=== PATIENT | female | born 1950 | race Caucasian/White ===

== ENCOUNTER → 2016-12-23 | Outpatient (CLI) | payer MEDICARE, BC ==
[~2016-12-23] MED LIST: ACET1CAP18 PO; BIOTCAP PO; CALC-187 PO; CHOL5000 PO; CYCL1TAB29 PO; ESTR2TAB4 PO; FIBE625T PO; FISH1000 PO; GABA600T PO; GEMF600T PO; IMIT50TA PO; LOSA50TA PO; MULT-135 PO; ONDA1TAB16 PO; PROP20TA3 PO; SYSTSOL EACH EYE; TRAM50TA PO
[2016-12-23 13:18] LABS: INDIRECT BILIRUBIN 0.2 MG/DL (0.0-0.8); TOTAL BILIRUBIN ADULT 0.3 MG/DL (0.2-1.0)
== END ==
LOC: CLAB 12:15
PROVIDERS: ATTEND Internal Medicine Gastroenterology
DX: R10.33 Periumbilical pain (principal)
CPT/HCPCS: 36415; 80076; 82565; 84520

== ENCOUNTER → 2017-01-15 | Day surgery (SDC) | payer MEDICARE, OTHER ==
[~2017-01-15] MED LIST changes: +*ONDANSETRON 4 MG VIAL PERIprocedural Use ONLY ONE; +LIDOCAINE HCL 1% 30 ML VIAL NB ONE; +MEPERIDINE HCL 25 MG/ML VIAL IV ONE; +PROPOFOL 200 MG/20 ML AMP IV ONE; +SODIUM CHLORIDE 0.9% 10 ML VIAL ONE
--- NOTE | 2017-01-20 10:18 | M6 ---
cc: VICENTA COLLAZO M.D. DATE 01/15/2017 DATE OF 1950 PROCEDURE Fluoroscopically guided L5-S1 translaminar epidural steroid injection. PROCEDURE NOTE History and physical was completed and signed. Consent was signed. Procedure site was marked. Medications were listed and reconciled. Pain score was recorded. Allergies were noted. Time out was taken. Fluoroscopy time was recorded where applicable. Sedation was administered or directed by Dr. Collazo. The patient was given oxygen. The patient was monitored by a registered nurse. Total procedure time was greater than 15 minutes. IV was started, blood pressure cuff, pulse oximeter and EKG were applied. The patient was placed in the prone position on a Anthony table, sedated with small amounts of propofol titrated to effect. Vital signs were monitored and remained stable throughout the procedure. The lumbar area was prepped with alcohol and 10% Betadine solution and draped with sterile drapes. Fluoroscopy was used to visualize the L5-S1 interlaminar space. The skin was infiltrated with 1% Xylocaine using a 27 gauge needle. Then a 3-1/2-inch 18-gauge Simpson needle was advanced using fluoroscopic guidance and the zglv-no-edindovvzb technique into the epidural space at L5-S1 slightly to the left of the midline. There was negative aspiration for blood or any other type of fluid and the patient was given 10 mL of half percent Xylocaine 80 mg of Depo-Medrol. Following this, she was taken to the recovery room with stable vital signs neurologically intact. W. MD LORAINE Ruiz/TORREY /10:27 AM /9:15 AM
== END | disposition home or self-care (01) ==
LOC: PHSDC 09:00
PROVIDERS: ATTEND Pain Medicine Interventional Pain Medicine
DX: M54.5 Low back pain (principal)
CPT/HCPCS: 62323; 99152; J2175; J2405

== ENCOUNTER → 2017-03-26 | Outpatient (CLI) | payer MEDICARE, OTHER ==
[~2017-03-26] MED LIST changes: -*ONDANSETRON 4 MG VIAL PERIprocedural Use ONLY ONE; -LIDOCAINE HCL 1% 30 ML VIAL NB ONE; -MEPERIDINE HCL 25 MG/ML VIAL IV ONE; -PROPOFOL 200 MG/20 ML AMP IV ONE; -SODIUM CHLORIDE 0.9% 10 ML VIAL ONE
[2017-03-26 08:25] LABS: HEMATOCRIT 35.4 % (35.0-46.0); MEAN CELL VOLUME 96.1 FL (80.0-100.0); MEAN CORPUSCULAR HEMOGLOBIN 32.2 PG (27.0-34.0); MEAN CORPUSCULAR HGB CONC 33.5 % (32.0-36.0); PLATELET COUNT 245 TH/MM3 (150-450); RED BLOOD COUNT 3.69 MIL/MM3 (4.00-5.30); RED CELL DISTRIBUTION WIDTH 12.7 % (11.6-17.2); REVIEW FLAG FINAL; WHITE BLOOD COUNT 8.3 TH/MM3 (4.0-11.0)
[2017-03-26 09:09] LABS: ALKALINE PHOSPHATASE 76 U/L (45-117); ALT (GPT) 17 U/L (10-53); ANION GAP 10 MEQ/L (5-15); AST (GOT) 12 U/L (15-37); BICARBONATE 26.5 MEQ/L (21.0-32.0); BLOOD UREA NITROGEN 19 MG/DL (7-18); CHLORIDE 105 MEQ/L (98-107); FREE T4 0.87 NG/DL (0.76-1.46); GLOMERULAR FILTRATION RATE 50 ML/MIN (>89); GLUCOSE,FASTING 100 MG/DL (74-99); HDL CHOLESTEROL 58.4 MG/DL (40.0-60.0); LDL CHOLESTEROL 130 MG/DL (0-99); SODIUM (NA) 141 MEQ/L (136-145); TOTAL BILIRUBIN ADULT 0.3 MG/DL (0.2-1.0)
== END ==
LOC: CLAB 07:47
PROVIDERS: ATTEND Family Medicine
DX: I10 Essential (primary) hypertension (principal); F41.9 Anxiety disorder, unspecified; F32.9 Major depressive disorder, single episode, unspecified; E78.2 Mixed hyperlipidemia; G43.909 Migraine, unspecified, not intractable, without status migrainosus
CPT/HCPCS: 36415; 80053; 80061; 82306; 82607; 84439; 84443; 85027

== ENCOUNTER 2017-09-07 09:50 | Emergency (ER) | payer MEDICARE, MEDICAID ==
[~2017-09-07] VITALS: Ht 172.7 cm; Wt 89.0 kg
[~2017-09-07 09:50] MED LIST changes: +CYCL10TA PO; -CYCL1TAB29 PO; -ONDA1TAB16 PO; +ONDA4TAB15 PO
[2017-09-07 10:00] VITALS: BP 155/67; PULSE 76; RESP 16; TEMP 97.9; O2SAT 97
[2017-09-07] MEDS ORDERED: AMIT25TA9 PO (10:58)
[2017-09-07] MEDS ORDERED: PANT20TA2 PO (10:58)
--- NOTE | 2017-09-07 11:13 | PD ---
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 States she has nasal congestion throat pain, intermittent fever, nausea, cough for 2 weeks. Said her granddaughter was sick with the cold. Said she feels a little sob but is mainly congestion. Denies any chest pain, vomiting, abdominal pain, new weakness or numbness. 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 Also gets botox injections for neck muscle spasms. PFSH Past Medical History Arthritis: Yes (OSTEOARTHRITIS) Asthma: No Autoimmune Disease: No Blood Disorders: No Anxiety: No Depression: No Heart Rhythm Problems: No Cancer: No Cardiovascular Problems: Yes (Hyperlipidemia) High Cholesterol: Yes Chemotherapy: No Chest Pain: No Congestive Heart Failure: No COPD: No Cerebrovascular Accident: No Diabetes: No Diminished Hearing: No Endocrine: No Gastrointestinal Disorders: Yes (Gastroenteritis) GERD: No Genitourinary: No Headaches: Yes Hepatitis: No Hiatal Hernia: No Hypertension: Yes Immune Disorder: No Kidney Stones: No Musculoskeletal: Yes Neurologic: Yes (GULLIAN BERRET'S) Psychiatric: No Reproductive: No Respiratory: No Integumentary: Yes (rash bilat legs) Migraines: Yes Radiation Therapy: No Renal Failure: No Seizures: No Sickle Cell Disease: No Sleep Apnea: No Thyroid Disease: Yes (Hypothyroidism) Ulcer: No PNEUMOCCOCAL Vaccine (Year): 1 Menopausal: Yes : 4 Para: 3 Miscarriage: 1 Ovarian Cysts: Yes Past Surgical History Abdominal Surgery: Yes (CHOLECYSTECTOMY 2012) AICD: No Arteriovenous Shunt: No Cardiac Surgery: No Cholecystectomy: Yes Ear Surgery: No Endocrine Surgery: No Eye Surgery: No Genitourinary Surgery: No Gynecologic Surgery: Yes (OOPHORECTOMY 1969; JIGNESH and BSO) Hysterectomy: Yes Insulin Pump: No Joint Replacement: No Oral Surgery: No Pacemaker: No Thoracic Surgery: No Other Surgery: Yes (cyst removed) Social History Alcohol Use: No Tobacco Use: No Substance Use: No Allergies-Medications (Allergen,Severity, Reaction): Coded Allergies: amlodipine (Unverified Allergy, Severe, Rash, 09/07/17) nitrofurantoin (Unverified Allergy, Severe, HIVES, 09/07/17) pneumococcal vaccine (Unverified Allergy, Intermediate, left arm edema, ) meloxicam (Unverified Allergy, Mild, RASH, 09/07/17) Influenza Virus Vaccines (Unverified Allergy, Unknown, NOT SURE IF IT CONTRIBUTES TO HER GUILLENE BARRE, 09/07/17) Sulfa (Sulfonamide Antibiotics) (Unverified Allergy, Unknown, UNKNOWN REACTION, 09/07/17) Reported Meds & Prescriptions Reported Meds & Active Scripts Active Reported Pantoprazole (Pantoprazole Sodium) 20 Mg Tab 20 Mg PO DAILY Amitriptyline (Amitriptyline HCl) 25 Mg Tab 25 Mg PO HS Imitrex (Sumatriptan Succinate) 50 Mg Tab 50 Mg PO BID NEEDED PRN If a satisfactory response has not been obtained at 2 hours, a second dose may be administered Tramadol (Tramadol HCl) 50 Mg Tab 50 Mg PO Q8H PRN Losartan (Losartan Potassium) 50 Mg Tab 50 Mg PO DAILY Gemfibrozil 600 Mg Tab 600 Mg PO BIDAC Take 30 minutes prior to breakfast and dinner. Gabapentin 600 Mg Tab 900 Mg PO TID Estrace (Estradiol) 2 Mg Tab 2 Mg PO DAILY Review of Systems Except as stated in HPI: all other systems reviewed are Neg Physical Exam Narrative GENERAL: 67yo F in mild distress. SKIN: Focused skin assessment warm/dry. HEAD: Atraumatic. Normocephalic. EYES: Pupils equal and round. No scleral icterus. No injection or drainage. ENT: Throat: Uvula midline, no erythema or edema. NECK: Trachea midline. No JVD. CARDIOVASCULAR: Regular rate and rhythm. No murmur appreciated. RESPIRATORY: No accessory muscle use. Clear to auscultation. Breath sounds equal bilaterally. GASTROINTESTINAL: Abdomen soft, non-tender, nondistended. MUSCULOSKELETAL: No obvious deformities. No clubbing. No cyanosis. No edema. NEUROLOGICAL: Awake and alert. LLE weakness more than RLQ that is not new. Sensation intact. PSYCHIATRIC: Appropriate mood and affect; insight and judgment normal. Data Data Last Documented VS Vital Signs Date Time Temp Pulse Resp B/P (MAP) Pulse Ox O2 Delivery O2 Flow Rate FiO2 09/07/17 10:00 97.9 76 16 155/67 (96) 97 Orders Orders Electrocardiogram (09/07/17 ) Complete Blood Count With Diff (09/07/17 11:11) Basic Metabolic Panel (Bmp) (09/07/17 11:11) Magnesium (Mg) (09/07/17 11:11) Chest, Single Ap (09/07/17 ) Ondansetron Inj (Zofran Inj) (09/07/17 11:15) Sodium Chlorid 0.9% 500 Ml Inj (Ns 500 M (09/07/17 11:15) Influenzae A/B Antigen (09/07/17 11:11) Guaifen-Cod 200-20 Mg/10ml Liq (Robituss (09/07/17 11:15) Group A Rapid Strep Screen (09/07/17 11:19) Acetaminophen (Tylenol) (09/07/17 11:30) Strep Culture (Group A) (09/07/17 11:29) Labs Laboratory Tests Test 09/07/17 11:28 White Blood Count 12.0 TH/MM3 Red Blood Count 4.03 MIL/MM3 Hemoglobin 12.5 GM/DL Hematocrit 36.8 % Mean Corpuscular Volume 91.2 FL Mean Corpuscular Hemoglobin 31.0 PG Mean Corpuscular Hemoglobin Concent 34.0 % Red Cell Distribution Width 11.9 % Platelet Count 316 TH/MM3 Mean Platelet Volume 8.5 FL Neutrophils (%) (Auto) 68.6 % Lymphocytes (%) (Auto) 20.7 % Monocytes (%) (Auto) 6.5 % Eosinophils (%) (Auto) 3.4 % Basophils (%) (Auto) 0.8 % Neutrophils # (Auto) 8.2 TH/MM3 Lymphocytes # (Auto) 2.5 TH/MM3 Monocytes # (Auto) 0.8 TH/MM3 Eosinophils # (Auto) 0.4 TH/MM3 Basophils # (Auto) 0.1 TH/MM3 CBC Comment DIFF FINAL Differential Comment Blood Urea Nitrogen 7 MG/DL Creatinine 0.90 MG/DL Random Glucose 91 MG/DL Calcium Level 8.7 MG/DL Magnesium Level 2.1 MG/DL Sodium Level 140 MEQ/L Potassium Level 3.7 MEQ/L Chloride Level 106 MEQ/L Carbon Dioxide Level 21.7 MEQ/L Anion Gap 10 MEQ/L Estimat Glomerular Filtration Rate 63 ML/MIN MDM Medical Decision Making Medical Screen Exam Complete: Yes Emergency Medical Condition: Yes Interpretation(s) EKG: NSR 67bpm. Normal axis. No ST segment elevation or depression. Differential Diagnosis URI vs. influenza vs. post nasal drip vs. pneumonia vs. sinusitis Narrative Course 67yo F with URI symptoms. Labs reviewed, WBC 12. Magnesium normal. BMP unremarkable. CXR showed mild elevation or hemidiaphragms. No focal infiltrates seen. Group A strep negative. Influenza negative. Pt given robitussin with codeine, zofra and acetaminophen. Pt reevaluated at bedside and feels better. Cough has improved. No chest pain. Return precautions given. Diagnosis Primary Impression: URI (upper respiratory infection) Qualified Codes: J06.9 - Acute upper respiratory infection, unspecified Patient Instructions: General Instructions Departure Forms: Tests/Procedures Additional Instructions: Please follow up with your primary care physician in 3-7 days. Return to the ED if symptoms worsen. Med/Other Pt SpecificInfo: Prescription(s) given Scripts Fluticasone Nasal [place] (Flonase Nasal [place]) 50 Mcg/Act [place] 50 MCG EACH NARE BID for Allergies, #1 BOTTLE 0 Refills Prov: Adilene Blue DO 09/07/17 Dextromethorphan-Guaifenesin (Robitussin Cough Chest Congestion) 10-200 Mg Cap 1 CAP PO Q6H Y for CHEST CONGESTION AND/OR COUGH for 5 Days, #20 CAP 0 Refills Prov: Adilene Blue DO 09/07/17 Disposition: 01 DISCHARGE HOME Condition: Stable Adilene Blue DO Sep 07, 2017 11:13
[2017-09-07] MEDS ORDERED: SODIUM CHLORID 0.9% 500 ML INJ 500 ML IV ONE (11:15)
[2017-09-07] MEDS ORDERED: ONDANSETRON HCL 4 MG/2 ML VIAL IV PUSH ONE (11:15)
[2017-09-07] MEDS ORDERED: guaiFENesin/CODEINE SYRUP 200 MG/20 MG/10 ML CUP PO ONE (11:15)
[2017-09-07] MEDS ORDERED: ACETAMINOPHEN 325 MG TAB PO ONE (11:30)
--- NOTE | 2017-09-07 11:39 | RADRPT ---
EXAM DATE/TIME: 09/07/2017 11:20 [facility] COMPARISON: CHEST SINGLE AP, December 27, 2014, 17:10. INDICATIONS : Cough and fever for 3 weeks. MEDICAL HISTORY : None. SURGICAL HISTORY : None. ENCOUNTER: Initial ACUITY: 3 weeks PAIN SCORE: 2/10 LOCATION: Bilateral chest FINDINGS: The heart is enlarged. Central pulmonary markings well delineated. Mild elevation right hemidiaphra gm. No focal infiltrates seen. No blunting of the costophrenic angles. CONCLUSION: Mild elevation of the hemidiaphragms a new finding from 2014. No focal infiltrates seen. Yuri Arredondo MD on September 07, 2017 at 11:37 Board Certified Radiologist. This report was verified electronically.
[2017-09-07 11:49] LABS: AUTOMATED NEUTROPHIL # 8.2 TH/MM3 (1.8-7.7); BASOPHIL # 0.1 TH/MM3 (0-0.2); BASOPHIL % 0.8 % (0.0-2.0); EOSINOPHIL # 0.4 TH/MM3 (0-0.4); EOSINOPHIL % 3.4 % (0.0-4.0); HEMATOCRIT 36.8 % (35.0-46.0); HEMO FLAGS DIFF FINAL; LYMPH % 20.7 % (9.0-44.0); LYMPHOCYTE # 2.5 TH/MM3 (1.0-4.8); MEAN CELL VOLUME 91.2 FL (80.0-100.0); MONO % 6.5 % (0.0-8.0); NEUT % 68.6 % (16.0-70.0); PLATELET COUNT 316 TH/MM3 (150-450); RED BLOOD COUNT 4.03 MIL/MM3 (4.00-5.30); RED CELL DISTRIBUTION WIDTH 11.9 % (11.6-17.2)
[2017-09-07 12:06] LABS: POTASSIUM 3.7 MEQ/L (3.5-5.1)
[2017-09-07 12:52] LABS: BICARBONATE 21.7 MEQ/L (21.0-32.0); MAGNESIUM 2.1 MG/DL (1.5-2.5)
[2017-09-07] MEDS ORDERED: FLUT1SPR5 EACH NARE (13:13)
[2017-09-07] MEDS ORDERED: DEXT1CAP5 PO (13:13)
[2017-09-07 13:25] VITALS: RESP 18
--- NOTE | 2017-09-07 18:01 | EKG ---
Date Performed: 09/07/2017 Time Performed: 11:46:33 PTAGE: 67 years EKG: Sinus rhythm NORMAL ECG Compared to prior tracing no significant change PREVIOUS TRACING : 12/27/2014 17.41 DOCTOR: Yessenia Vasquez Interpretating Date/Time 09/07/2017 18:00:27
== END 2017-09-07 13:32 | disposition home or self-care (01) ==
LOC: PHED 09:50 → PHEFT 13:32
DX: J06.9 Acute upper respiratory infection, unspecified (principal); G61.0 Guillain-Barre syndrome; I10 Essential (primary) hypertension; Z79.899 Other long term (current) drug therapy
CPT/HCPCS: 71010; 80048; 83735; 85025; 87081; 87804; 87880; 93005; 96361; 96374; 99285; J2405; J7040

== ENCOUNTER → 2017-11-23 | Day surgery (SDC) | payer MEDICARE, MEDICAID ==
[~2017-11-23] MED LIST changes: -ACET1CAP18 PO; +AMIT25TA9 PO; -CALC-187 PO; +CALC1TAB87 PO; -CHOL5000 PO; +CHOL500022 PO; -CYCL10TA PO; +DEXT1CAP5 PO; -FISH1000 PO; +FLUT1SPR5 EACH NARE; +LIDOCAINE HCL 1% PF 30 ML VIAL INFIL ONE; +MEPERIDINE HCL 25 MG/ML VIAL IV ONE; +MEPERIDINE HCL 50 MG/ML VIAL ONE; -MULT-135 PO; +MULTTAB12 PO; +OMEG100010 PO; -ONDA4TAB15 PO; +PANT20TA2 PO; -PROP20TA3 PO; +PROPOFOL 200 MG/20 ML AMP IV ONE; +SODIUM CHLORIDE 0.9% 10 ML VIAL ONE; +TRIA0.5O TOPICAL; +TRIAMCINOLONE ACETONIDE 40 MG/ML VIAL NERV BLOCK ONE; +VITA250T5 PO; +VITA50TA30 PO; +ZOFR4TAB PO
--- NOTE | 2017-11-24 06:31 | M6 ---
cc: VICENTA COLLAZO M.D. DATE 11/23/2017 DATE OF 1950 PROCEDURE Fluoroscopically guided T1-T2 interlaminar epidural steroid injection. History and physical was completed and signed. Consent was signed. Procedure site was marked. Medications were listed and reconciled. Pain score was recorded. Allergies were noted. Time out was taken. Fluoroscopy time was recorded where applicable. Sedation was administered or directed by Dr. Collazo. The patient was given oxygen. The patient was monitored by a registered nurse. Total procedure time was greater than 15 minutes. PROCEDURE NOTE IV was started. Blood pressure cuff, pulse oximeter and EKG were applied. The patient was placed in the prone position on a Anthony table, sedated with small amounts of Demerol and propofol titrated to effect. Vital signs were monitored and remained stable throughout the procedure. The cervical area was prepped with alcohol and 10% Betadine solution and draped with sterile drapes. Fluoroscopy was used to visualize the T1-T2 interlaminar space. The skin was infiltrated with 1% Xylocaine using a 27-gauge needle. Then a 3-1/2-inch, 18-gauge Simpson needle was advanced using the qbve-av-jytdgzdjoo technique and fluoroscopic guidance through the ligamentum flavum into the epidural space. There was negative aspiration for blood or any other type of fluid and the patient was given 6 mL of normal saline and 60 mg of Kenalog. Following the procedure the patient was taken to the recovery room with stable vital signs, neurologically intact. She will be evaluated immediately and with followup to determine if she has a subjective decrease in her usual pain and a corresponding objective increase in her functional capabilities. This patient was last seen in March of 2017 at which time we used Botox on both her cervical and shoulder musculature which helped her headaches significantly. Then in July her headaches began to return. Now she has severe headaches and pain radiating down her left arm. The above-mentioned cervical epidural steroid injection is intended to help her left cervical radiculopathy and we need to repeat the Botox injection which was effective back in March of 2017. I have reminded the patient again that the duration of Botox is 3-4 months in most patients so if we repeat the Botox and her headaches significantly improve, she needs to remember when the headaches began to return, usually at a 3 to 4-month period, to come to repeat her Botox. W. MD LORAINE Ruiz/GABBY /8:22 AM /6:22 AM
== END | disposition home or self-care (01) ==
LOC: PHSDC 07:01
PROVIDERS: ATTEND Pain Medicine Interventional Pain Medicine
DX: M54.12 Radiculopathy, cervical region (principal)
CPT/HCPCS: 62321; 99152; J2175; J3301

== ENCOUNTER → 2017-12-07 | Day surgery (SDC) | payer MEDICARE, MEDICAID ==
[~2017-12-07] MED LIST changes: -DEXT1CAP5 PO; -FLUT1SPR5 EACH NARE; +FLUT50SP EACH NARE; +HYDR-2376 PO; +LIDOCAINE HCL 1% 30 ML VIAL INFIL ONE; -LIDOCAINE HCL 1% PF 30 ML VIAL INFIL ONE; -MEPERIDINE HCL 50 MG/ML VIAL ONE; +PRED1 PO; -TRIAMCINOLONE ACETONIDE 40 MG/ML VIAL NERV BLOCK ONE; +methylPREDNISolone ACETATE 80 MG/ML VIAL ONE
--- NOTE | 2017-12-09 11:08 | M6 ---
cc: VICENTA COLLAZO M.D. DATE 12/07/2017 DATE OF 1950 PROCEDURE Fluoroscopically guided L5-S1 interlaminar epidural steroid injection. History and physical was completed and signed. Consent was signed. Procedure site was marked. Medications were listed and reconciled. Pain score was recorded. Allergies were noted. Time out was taken. Fluoroscopy time was recorded where applicable. Sedation was administered or directed by Dr. Collazo. The patient was given oxygen. The patient was monitored by a registered nurse. Total procedure time was greater than 15 minutes. PROCEDURE NOTE IV was started. Blood pressure cuff, pulse oximeter and EKG were applied. The patient was placed in the prone position on a Anthony table, sedated with small amounts of propofol titrated to effect. Vital signs were monitored and remained stable throughout the procedure. The lumbar area was prepped with alcohol and 10% Betadine solution and draped with sterile drapes. Fluoroscopy was used to visualize the L5-S1 interlaminar space. The skin was infiltrated with 1% Xylocaine using a 27-gauge needle. Then a 3-1/2-inch, 18-gauge Simpson needle was advanced using fluoroscopic guidance and the bpey-ed-ylpqykncrd technique into the epidural space at L5-S1 slightly to the right of the midline. There was negative aspiration for blood or any other type of fluid and the patient was given 10 mL of 0.5% Xylocaine, 80 mg of Depo-Medrol. Following the procedure the patient was taken to the recovery room with stable vital signs, neurologically intact. WMD LORAINE Hicks/GABBY /8:39 AM /11:02 AM
== END | disposition home or self-care (01) ==
LOC: PHSDC 07:09
PROVIDERS: ATTEND Pain Medicine Interventional Pain Medicine
DX: R51 Headache (principal)
CPT/HCPCS: 62323; 99152; J1040; J2175

== ENCOUNTER → 2018-02-02 | Day surgery (SDC) | payer MEDICARE, MEDICAID ==
[~2018-02-02] MED LIST changes: +TRIAMCINOLONE ACETONIDE 40 MG/ML VIAL NERV BLOCK ONE; -methylPREDNISolone ACETATE 80 MG/ML VIAL ONE
--- NOTE | 2018-02-02 10:50 | M6 ---
cc: Kasey Collazo MD DATE: 02/02/2018 DATE OF : 1950 PROCEDURE: Fluoroscopically-guided T1-T2 interlaminar epidural steroid injection. History and physical was completed and signed. Consent was signed. Procedure site was marked. Medications were listed and reconciled. Pain score was recorded. Allergies were noted. Time out was taken. Fluoroscopy time was recorded where applicable. Sedation was administered or directed by Dr. Collazo. The patient was given oxygen. The patient was monitored by a registered nurse. Total procedure time was greater than 15 minutes. PROCEDURE NOTE: IV was started. Blood pressure cuff, pulse oximeter and EKG were applied. The patient was placed in the prone position on a Anthony table, sedated with small amounts of propofol titrated to effect. Vital signs were monitored and remained stable throughout the procedure. The cervical area was prepped with alcohol and 10% Betadine solution and draped with sterile drapes. Fluoroscopy was used to visualize the T1-T2 interlaminar space. The skin was infiltrated with 1% Xylocaine, using a 27-gauge needle. Then, a 3-1/2 inch, 18-gauge Simpson needle was advanced using fluoroscopic guidance and the loss of resistance technique into the epidural space at T1-T2, slightly to the right of the midline. There was negative aspiration for blood or any other type of fluid and the patient was given 6 mL of normal saline and 60 mg of Kenalog. Following the procedure, the patient was taken to the recovery room with stable vital signs, neurologically intact. She will be evaluated immediately and with followup to determine if she has a subjective decrease in her usual pain and a corresponding objective increase in her functional capabilities. MD LORAINE Arriaga/ANNA , 10:25 AM , 10:49 AM
== END | disposition home or self-care (01) ==
LOC: PHSDC 09:00
PROVIDERS: ATTEND Pain Medicine Interventional Pain Medicine
DX: M25.511 Pain in right shoulder (principal)
CPT/HCPCS: 62321; 99152; J2175; J3301

== ENCOUNTER → 2018-02-14 | Day surgery (SDC) | payer MEDICARE, MEDICAID ==
[~2018-02-14] MED LIST changes: -PRED1 PO; -TRIAMCINOLONE ACETONIDE 40 MG/ML VIAL NERV BLOCK ONE; -VITA50TA30 PO; +methylPREDNISolone ACETATE 80 MG/ML VIAL ONE
--- NOTE | 2018-02-14 09:15 | M6 ---
cc: Kasey Collazo MD DATE: 02/14/2018 PROCEDURE: Fluoroscopically guided L5-S1 intralaminar epidural steroid injection. PROCEDURE NOTE: History and physical was completed and signed. Consent was signed. Procedure site was marked. Medications were listed and reconciled. Pain score was recorded. Allergies were noted. Time out was taken. Fluoroscopy time was recorded where applicable. Sedation was administered or directed by Dr. Colalzo. The patient was given oxygen. The patient was monitored by a registered nurse. Total procedure time was greater than 15 minutes. IV was started. Blood pressure cuff, pulse oximeter and EKG were applied. The patient was placed in the prone position on a Anthony table, sedated with small amounts of Propofol titrated to effect. Vital signs were monitored and remained stable throughout the procedure. Lumbar area was prepped with alcohol and 10% Betadine solution and draped with sterile drapes. Fluoroscopy was used to visualize the L5-S1 intralaminar space. The skin was infiltrated with 1% Xylocaine using a 27-gauge needle. Then, a 3-1/2 inch, 18-gauge Simpson needle was advanced using fluoroscopic guidance and the loss of resistance technique into the epidural space at L5-S1 slightly to the right of the midline. There was negative aspiration for blood or any other type of fluid and the patient was given 10 mL of 0.5% Xylocaine and 80 mg of Depo-Medrol. Following the procedure, the patient was taken to the recovery room with stable vital signs neurologically intact. She will be evaluated immediately and with followup to determine if she has a subjective decrease in her usual pain and a corresponding objective increase in her functional capabilities. Kasey Collazo MD WRM/DL , 09:01 AM , 09:14 AM
== END | disposition home or self-care (01) ==
LOC: PHSDC 06:47
PROVIDERS: ATTEND Pain Medicine Interventional Pain Medicine
DX: M54.5 Low back pain (principal)
CPT/HCPCS: 62323; 99152; J1040; J2175